=== PATIENT | male | born 1990 | race Caucasian/White ===

== ENCOUNTER 2016-10-16 18:40 | Emergency (ER) | payer OTHER ==
[~2016-10-16] VITALS: Ht 185.4 cm; Wt 140.2 kg
[2016-10-16 18:56] VITALS: TEMP 37.1; Ht 185.4 cm; Wt 140.2 kg
[2016-10-16] MEDS ORDERED: XYLOCAINE 1%/SOD BICARB 20 ML VIAL INFIL ONE (19:30)
[2016-10-16] MEDS ORDERED: AMOX875T PO (20:02)
[2016-10-16 20:27] VITALS: BP 144/81; PULSE 69; O2SAT 97
--- NOTE | 2016-10-17 01:51 | EMERGENCY ROOM VISIT NOTE ---
ED Visit Note First contact with patient: 19:06 Chief Complaint: Dog bite left hand. History of Present Illness: Mr. Franco is a 26-year-old white male who ambulates into the ED complaining of a dog bite to the palm of the left hand. Patient reports a proximally 3 hours ago she was walking home and was bitten on the palmar aspect of the left hand by his neighbors a dog without provocation. Prior to arrival at the hospital he did clean his wound with soap and water and control bleeding. Patient does report he talk to the neighbors and they reported there family dog' s immunizations are up-to-date. Associated with patient's soft tissue injury he is complaining of a mild achiness and throbbing discomfort in the palm of the hand in the area of the dog bite. He rates his discomfort 2/10. The pain is nonradiating. The pain worsens with palpation. He has not identified any alleviating factors related to the pain. He denies any associated symptoms including forearm pain, wrist pain, other hand pain, finger pain, hand weakness/numbness/tingling. Review of Systems: As noted above in history of present illness. 8 body systems were reviewed and found to be negative as noted above. Past Medical History: Bronchitis, and status post right hand surgery to repair index tendon injury. Current Medications: Patient denies. Allergies to Medications: Patient denies. Social History: Patient is currently employed; he feels safe in his home environment; he denies tobacco use and admits to alcohol use. Tetanus Immunization Status: Patient reports up-to-date. Physical Examination: Vital Signs: Date Time Temp Pulse Resp B/P (MAP) Pulse Ox O2 Delivery O2 Flow Rate FiO2 10/16/16 20:27 69 18 144/81 97 10/16/16 18:56 37.1 71 16 143/92 99 Room Air GENERAL: 26-year-old male in mild distress due to pain, nontoxic-appearing, afebrile and hemodynamically stable. NEUROLOGICAL: Awake, alert and oriented to person, place and time. Answering questions appropriately and following commands. Normal gait. Good hand eye coordination. No focal motor or sensory deficits. SKIN: Warm, dry and pink. Left Palm: Patient has 2 superficial puncture wounds from his dog bite in the area between the thenar and hyperthenar eminence. Additionally over the medial border of the thenar eminence patient has a 1.4 cm full-thickness puncture wound/laceration with a small piece of extruded fat. LEFT UPPER EXTREMITY: No gross bony deformity. No tenderness in the shoulder, elbow, forearm or wrist. Mild tenderness in the area patient's dog bite over the anterior aspect of the palm. Between the thenar and hyperthenar eminence patient has a 1.4 cm full-thickness wound with no active bleeding. Extruding from the wound is a piece of subcutaneous adipose tissue. No active bleeding. I was not able to elicit any bony tenderness throughout the hand. There is no local erythema or edema consistent with early infection. Throughout the hand the skin was warm and pink and capillary refill is brisk. The patient was able to distinguish light sensations in all dermatomes of the hand. ED Course: Patient is assessed as noted above. Wound Repair: Complexity: Basic. Verbal consent was obtained after the risks and benefits were explained. The skin was prepped with betadine and a sterile field set. Wound edges of the wound was anesthetized with 2.4 ml buffered 1% lidocaine. The wound was explored for foreign bodies and none found. I did simply remove the extruded piece of fat that was noted previously without difficulty. Copious irrigation was performed using sterile saline. With direct pressure the bleeding subsided. Debridement was not performed. The wound edges were approximated using 4-0 Ethilon with 2 simple interrupted sutures. Hemostasis and excellent approximation was achieved. Antibacterial ointment and a sterile dressing applied. No complications and the patient tolerated the procedure well. Patient was educated about tonight's findings and instructed on his treatment plan; he verbalizes understanding and agreement with this plan. Clinical Impression: Dog bite of the left hand. Disposition: Patient discharged home in stable condition; prior to departure he was reassessed and subjectively reported he was pain-free. Plan: Comfort measures, wound care, and signs of infection were discussed with the patient. A antwon was prescribed Augmentin 805 mg 2 times a day for 7 days. Patient was encouraged to follow-up with personal physician or return emergency department for signs of infection.
== END 2016-10-16 20:27 | disposition home or self-care (01) ==
LOC: C.EDB 18:44 → C.EDD 20:27
DX: S61.452A Open bite of left hand, initial encounter (principal); W54.0XXA Bitten by dog, initial encounter; Y92.89 Other specified places as the place of occurrence of the external cause